=== PATIENT | female | born 2000 | race Hispanic/Latino ===

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

== ENCOUNTER 2021-12-10 03:26 | Emergency (ER) | payer OTHER ==
[~2021-12-10] VITALS: Ht 149.9 cm; Wt 49.9 kg
[2021-12-10] MEDS ORDERED: ONDANSETRON HCL 4 MG ORAL DISINTEGRATING TAB PO ONE (06:00)
[2021-12-10] MEDS ORDERED: KETOROLAC TROMETHAMINE 60 MG/2 ML VIAL IM ONE (06:00)
[2021-12-10] MEDS ORDERED: KETOROLAC TROMETHAMINE 60 MG/2 ML VIAL ONE (06:07)
[2021-12-10] MEDS ORDERED: ONDANSETRON HCL INJ 2MG/ML 2ML 2 MG/ML VIAL ONE (06:07)
[2021-12-10] MEDS ORDERED: ONDANSETRON HCL 4 MG ORAL DISINTEGRATING TAB ONE (06:08)
[2021-12-10 06:28] LABS: CLARITY,URINE CLEAR (CLEAR); COLOR,URINE YELLOW (YELLOW); KETONES,URINE 2+ (NEGATIVE); LEUKOCYTE ESTERASE ,URINE NEGATIVE (NEGATIVE); NITRITE,URINE NEGATIVE (NEGATIVE); PROTEIN,URINE DIPSTICK NEGATIVE (NEGATIVE); URINE UROBILINOGEN 0.2 mg/dL (0.2 - 1)
[2021-12-10 06:45] LABS: BACTERIA,URINE FEW /HPF; EPITHELIAL CELLS,URINE FEW /LPF; RBC,URINE 0-5 /HPF (0-5); WBC,URINE (MAN) 0-5 /HPF (0-5)
[2021-12-10] MEDS ORDERED: DICYCLOMINE HCL10 MG PO (07:13)
[2021-12-10] MEDS ORDERED: ONDANSETRON ODT4 MG PO (07:13)
== END 2021-12-10 07:19 | disposition home or self-care (01) ==
LOC: ER 04:07
DX: R19.7 Diarrhea, unspecified (principal); R11.0 Nausea; R10.33 Periumbilical pain; R51.9 Headache, unspecified
CPT/HCPCS: 81001; 81025; 87086; 99282; J1885; J2405; Q0162

== ENCOUNTER 2021-12-26 20:54 | Emergency (ER) | payer OTHER ==
[~2021-12-26] VITALS: Ht 149.9 cm; Wt 49.9 kg
[~2021-12-26 20:54] MED LIST: DICYCLOMINE HCL10 MG PO; ONDANSETRON ODT4 MG PO
[2021-12-26] MEDS ORDERED: IBUPROFEN 600 MG TAB PO STA (21:17)
== END 2021-12-27 00:30 | disposition home or self-care (01) ==
LOC: FSED 21:02
DX: M25.512 Pain in left shoulder (principal); M25.552 Pain in left hip; X50.1XXA Overexertion from prolonged static or awkward postures, initial encounter; Y92.89 Other specified places as the place of occurrence of the external cause
CPT/HCPCS: 99283